=== PATIENT | female | born 1960 | race Caucasian/White ===

== ENCOUNTER → 2016-07-24 | Outpatient (CLI) | payer OTHER ==
[2016-07-24 12:57] LABS: CREATININE, URINE 45.6 MG/DL (15-500)
== END ==
LOC: MOB LAB 11:06
DX: E11.9 Type 2 diabetes mellitus without complications (principal)
CPT/HCPCS: 82043

== ENCOUNTER 2017-04-03 12:18 | Observation (INO) ==
[2017-04-03 09:56] LABS: Hemoglobin [HGB] 16.4 g/dL (12.0-16.0); MEAN CORPUSCULAR HEMOGLOBIN 31.1 PG (27-31); MEAN CORPUSCULAR HGB CONC 33.4 g/dL (33-37); MEAN CORPUSCULAR VOLUME 93 FL (81-99); RED BLOOD COUNT 5.28 10^6/uL (4.20-5.40)
[2017-04-03 09:57] LABS: BASOPHILS % (AUTO) 0.6 % (0-1); EOSINOPHILS % (AUTO) 1.6 % (0-8); LYMPHOCYTES # (AUTO) 1.85 10*3/uL; MEAN PLATELET VOLUME 7.6 FL (7.4-12.2); MONOCYTES # (AUTO) 0.84 10*3/UL (0.3-0.8); MONOCYTES % (AUTO) 7.7 % (5-15); NEUTROPHILS # (AUTO) 7.97 10*3/UL; NEUTROPHILS % (AUTO) 73.1 % (50-80)
[2017-04-03 09:58] LABS: BASOPHILS # (AUTO) 0.07 10*3/UL; EOSINOPHILS # (AUTO) 0.17 10*3/UL; PLATELET MORPHOLOGY COMMENT NORMAL MORPHOLOGY (NORM); RBC MORPHOLOGY COMMENT NORMAL MORPHOLOGY (NORM); WBC MORPHOLOGY COMMENT NORMAL MORPHOLOGY (NORM)
[2017-04-03 10:02] LABS: BLOOD UREA NITROGEN 13 mg/dL (7-22); BUN/CREATININE RATIO 16.25 (6-20); SERUM ALBUMIN 4.7 g/dL (3.5-4.8)
--- NOTE | 2017-04-03 11:41 | DI ---
CT Abdomen/Pelvis W Contrast,04/03/2017 9:24 AM: Clinical History: Unspecified abdominal pain. Previous Exam: None at this facility. Findings: Multiple helically acquired CT images are obtained through the abdomen and pelvis following intraveno us administration of contrast. There is diffuse fatty infiltration of the liver. Patient is status po st cholecystectomy. The spleen, adrenals, kidneys and pancreas are unremarkable. There is no mesenteric or retroperitonea l lymphadenopathy. The appendix is enlarged, fluid-filled and inflamed measuring 12 mm in diameter. T here is peritonitis involving the right peritoneal reflection. The urinary bladder is unremarkable. The uterus and ovaries are grossly normal. A few peripheral vascular calcifications are seen. There is no evidence of free air. Impression: Acute appendicitis.
[2017-04-03] MEDS ORDERED: LIDOCAINE W/ SODIUM BICARB 0.5 ML SYR SUBD ONE (12:40)
[2017-04-03] MEDS ORDERED: Lactated Ringers 1,000 ML PRIMARY IV ONE ×3 (12:42→15:25)
[2017-04-03] MEDS ORDERED: LIDOCAINE W/ SODIUM BICARB 0.5 ML SYR ONE (12:42)
[2017-04-03] MEDS ORDERED: Lactated Ringers 1,000 ML PRIMARY IV SCH ×4 (13:15→17:24)
[2017-04-03] MEDS ORDERED: fentaNYL Inj 250 MCG/5 ML VIAL ONE (13:27)
[2017-04-03] MEDS ORDERED: MIDAZOLAM 5 MG/1 ML ONE (13:27)
[2017-04-03] MEDS ORDERED: ROCURONIUM 10 MG/1 ML - 5 ML VIAL IVP ONE (13:29)
[2017-04-03] MEDS ORDERED: PROPOFOL 10 MG/1 ML (200 MG/20 ML) VIAL IV ONE (13:30)
--- NOTE | 2017-04-03 13:38 | PDOC ---
HPI - History of Present Illness Date of Service: 04/03/17 Time of Service: 13:20 Chief Complaint: Acute appendicitis. History of Present Illness: The patient is a 57-year-old female who reports 2-3 days of not feeling well. She initially did not have any appetite 2 days ago. Yesterday she started having abdominal pain. The pain was progressive until today. She presented to the open access clinic. She was afebrile. White count was 10,900. She was tender in her right lower quadrant. She had a CT scan done which is positive for acute appendicitis. I am called to see her. She was sent down surgery for me to evaluate her and I am seeing her at this time. Patient reports she's had some diaphoresis. She denies fever or chills. She denies diarrhea or constipation. She denies nausea or vomiting. She had a bowel movement yesterday but none today. She passed a small amount of gas this morning. She's never had a pain like this before. Past Medical History Medical History: Type II diabetes. Hyperlipidemia. Hypertension. Hypothyroidism. Obesity. Asthma. Surgical History: Laparoscopic cholecystectomy. Laparoscopic oophorectomy. Finger surgery. 2. Tubal ligation. Tobacco Use: Never Smoker In the Past 12 Months, Have Used or Abuse Any of the Following Substance: None Medication / Allergies Home Medications: Home Medications Medication Instructions Recorded Confirmed Type Cholecalciferol (Vitamin D3) 10,000 unit PO DAILY 12/03/13 04/03/17 History [Vitamin D3] Ibuprofen [Motrin Tab] 400 mg PO TID PRN #30 tab 12/03/13 04/03/17 Rx Multivitamin [One Daily 1 ea PO DAILY 12/03/13 04/03/17 History Multivitamin] Albuterol HFA Inhaler [Proair Hfa 1 - 2 puff INH Q6H #1 puff 03/22/14 04/03/17 History Inhaler] Magnesium 1 tab PO QD #30 tab 07/12/15 04/03/17 History [place]-3S/Dha/Epa/Fish Oil [Fish 1 cap PO QD #30 cap 07/12/15 04/03/17 History Oil 1,200 Mg Softgel] Sodium Chloride/Sodium Bicarb 75 ml NS QD PRN #1 spray 07/12/15 04/03/17 History [[employer]asa Mist Saline [place]] Blood Sugar Diagnostic [Onetouch 1 ea IN QID #360 strip 04/09/16 04/03/17 Rx Ultra Test Strips] Oxybutynin Chloride [Ditropan Xl] 1 tab PO QD #90 tab 04/09/16 04/03/17 Rx amlodipine 10 mg-benazepril 40 mg 1 cap PO QD #90 cap 01/21/17 04/03/17 Rx capsule metformin 500 mg tablet 500 mg PO QD #90 tab 01/21/17 04/03/17 Rx levothyroxine 75 mcg capsule 75 mcg PO QDAY #30 cap 02/04/17 04/03/17 Rx spironolactone 25 mg tablet 25 mg PO QDAY #30 tab 02/04/17 04/03/17 Rx atorvastatin 40 mg tablet 40 mg PO QDAY #30 tab 02/27/17 04/03/17 Rx Allergies/Adverse Reactions: Allergies 3 Allergy/AdvReac Type Severity Reaction Status Date / Time No Known Allergies Allergy Verified 04/03/17 12:28 Review of Systems - Gastrointestinal Gastrointestinal / Abdominal: REPORTS: Abdominal Pain, Poor Appetite, See HPI. DENIES: Negative System Review, Nausea, Vomiting, Diarrhea, Constipation, Bloody Stool, Heartburn, Regurgitation, Bloating, Lactose Intolerance, Melena, Bright Red Blood per Rectum, Other Exam - Vitals Vital Signs: Vital Signs Temperature 98.6 F Pulse Rate 81 Respiratory Rate 14 Blood Pressure 111/78 Pulse Ox 94 Height 5 ft 3 in Weight 182 lb - General General Appearance: No Acute Distress, Cooperative - Respiratory Respiratory Exam: POSITIVE: Clear to Auscultation - Bilaterally, Breathing Non Labored - Cardiovascular Cardiovascular Exam: POSITIVE: RRR, No Murmur - GI/Abdominal GI/Abdominal Exam: POSITIVE: Non Distended, Soft, Guarding (Voluntary, right lower quadrant.), Hypoactive Bowel Sounds Additional GI/Abdominal Exam Details: Physical tenderness in the right lower quadrant at McBurney's point. Voluntary guarding. Midline incision is well healed. There is an umbilical incisional hernia. - Neurological Neurological Exam: POSITIVE: Alert, Oriented x 3 - Psychiatric Psychiatric Exam: POSITIVE: Normal Affect, Normal Mood Results - Labs CBC and BMP: 04/03/17 09:46 04/03/17 09:46 - Imaging Status: Image Reviewed by Me (And discussed with the radiologist.), Report Reviewed by Me Assessment and Plan - Patient Problems (1) Acute appendicitis Current Visit: Yes Status: Acute Priority: High Onset Date: ~04/02/17 Comment: Proceed with appendectomy. I think this is amenable to a laparoscopic appendectomy and repair of her incisional hernia. We will proceed that way. She understands she might need an open appendectomy.The procedure has been discussed with the patient in complete yet simple terms including benefits, risks, and alternatives. All questions have been answered. Informed consent has been obtained. The patient's was present for conversation. Code(s): K35.80 - Unspecified acute appendicitis Qualifiers: Acute appendicitis type: with localized peritonitis Qualified Code(s): K35.3 - Acute appendicitis with localized peritonitis
[2017-04-03] MEDS ORDERED: Sodium Chloride 0.9% vial 10 ML ONE (13:40)
[2017-04-03] MEDS ORDERED: BUPIVACAINE 0.25% W/ EPI - 10 ML VIAL ONE ×2 (13:40→14:41)
[2017-04-03] MEDS ORDERED: NORMAL SALINE 10 ML SYRINGE FLUSH IVP PRN ×2 (13:48→15:49)
[2017-04-03] MEDS ORDERED: ERTAPENEM IV SCH (14:00)
[2017-04-03] MEDS ORDERED: SODIUM CHLORIDE 0.9% IV SCH (14:00)
[2017-04-03] MEDS ORDERED: KETAMINE 100 MG/1 ML - 5 ML ONE (14:21)
[2017-04-03] MEDS ORDERED: ONDANSETRON 4 MG/2 ML VIAL ONE (14:32)
[2017-04-03] MEDS ORDERED: KETOROLAC 30 MG/1 ML VIAL ONE (14:32)
[2017-04-03] MEDS ORDERED: HYDROmorphone 2 MG/1 ML ONE (14:43)
[2017-04-03] MEDS ORDERED: SUGAMMADEX SODIUM 200 MG/2 ML VIAL IV ONE (15:18)
--- NOTE | 2017-04-03 15:48 | CRNA.PROGR ---
Anesthesia Recovery Phase I - Post Anesthesia Evaluation Patient's Condition on Arrival in Phase I: Stable Pain Level: 1
[2017-04-03] MEDS ORDERED: fentaNYL Inj 100 MCG/2 ML VIAL IVP PRN (15:49)
[2017-04-03] MEDS ORDERED: ONDANSETRON 4 MG/2 ML VIAL IVP PRN ×2 (15:49→17:24)
[2017-04-03] MEDS ORDERED: HYDROmorphone 2 MG/1 ML IVP PRN (15:49)
--- NOTE | 2017-04-03 15:49 | CRNA.PROGR ---
Anesthesia Time - - Start date: 04/03/17 End date: 04/03/17 - Procedure/Recovery Time Anesthesia : Time In: 13:56 Anesthesia : Time Out: 15:39 Anesthesia : Total Time: 103 - Total Anesthesia Time Total Anesthesia Time (minutes): 103 - Other Weight: 82.554 kg Height: 5 ft 3 in Body Mass Index (BMI): 32.2 Physical Status: P2 Anesthesia Type: General Anesthesia : ET (Lap Appy with umbilical hernia repair)
--- NOTE | 2017-04-03 16:59 | GEN.OPNOTE ---
Operative Note Surgery Date: 04/03/17 Preoperative Diagnosis: Acute appendicitis. Incisional hernia at the umbilicus. Postoperative Diagnosis: Same. Procedure: #1 laparoscopic appendectomy. #2 incisional herniorrhaphy. Surgeon: Amilcar Murillo MD Anesthesia Provider: Qunicy Tovar CRNA Anesthesia Type: General Estimated Blood Loss (mL): 5 Fluids: 2000 mL of crystalloid. 1 g of IV Invanz at the start of the procedure. 30 mg of IV Toradol at the end of the procedure. Pathology: Specimen to pathology. Indications: Clinical exam and CT scan consistent with acute appendicitis. Patient also had an incisional hernia which needed to be repaired to proceed with a laparoscopic appendectomy. Findings: Acute appendicitis. Incisional hernia at the umbilicus. Thin fascia. Multiple intra-abdominal adhesions. Complications: None. Operative Summary: The patient was taken to the operating suite and placed on the operating table in a supine position. Following induction of general anesthetic the abdomen was prepped and draped in a sterile fashion. A surgical timeout was done. All incision sites were infiltrated with 1/4% Marcaine with epinephrine. A curvilinear incision was made below the umbilicus. The dissection was carried down to the fascia with electrocautery. The umbilicus was detached. The hernia sac was excised. The preperitoneal fat was reduced through the hernia defect at the umbilicus. The defect at the umbilicus was extended in size to get back to adequate tissue for closure.. The wound was partially closed transversely with [id number] sutures of 0 Vicryl. Some intra-abdominal adhesions were taken down. A Say cannula was inserted and secured with the fascial closure sutures. A pneumoperitoneum was induced. A laparoscope was inserted. A 10 mm trocar was placed in the lower midline under direct visualization and a 5 mm trocar was placed in the right lower quadrant under direct visualization. There were some adhesions to the cecum from the lateral abdominal wall. These were taken down with the gyrus device and sharply. The appendix was visualized and grasped. The mesoappendix was taken down with the gyrus until the appendix was freed to its base. An Endoloop was placed over the appendix up to the base of the cecum. It was closed, secured, and cut. A second Endoloop was placed over the appendix and tightened and cut. The gyrus device was used to amputate the appendix. The appendix was placed into an Endopouch and brought out through the umbilical trocar site. Appropriate irrigation and suctioning were performed. Hemostasis was assured. The trochars were removed under direct visualization. The fascial defect at the umbilicus was closed transversely with [id number] sutures of 0 Vicryl. The umbilicus was reattached with 2- 0 Vicryl. The skin was closed with surgical brigette followed by an appropriate dressing. The lower midline fascial defect was closed with a [id number] suture of 0 Vicryl. The 5 mm trocar site did not require fascial closure. The remaining skin wounds closed with surgical brigette followed by appropriate dressings. The patient tolerated the entire procedure well without complication. She was taken to the recovery room in stable condition. All counts were correct. Patient Problems - Patient Problem List (1) Acute appendicitis Current Visit: Yes Status: Acute Onset Date: ~04/02/17 Priority: High Code(s): K35.80 - Unspecified acute appendicitis Qualifiers: Acute appendicitis type: with localized peritonitis Qualified Code(s): K35.3 - Acute appendicitis with localized peritonitis Category: Medical
[2017-04-03] MEDS ORDERED: MORPHINE SULFATE 2 MG/1 ML IVP PRN (17:24)
[2017-04-03] MEDS ORDERED: HYDROcodone-APAP 5 MG -325 MG TABLET PO PRN (17:24)
[2017-04-03] MEDS ORDERED: ALBUTEROL SULFATE 8.5 GM HFA INHALER INH PRN (19:00)
[2017-04-03] MEDS: NORMAL SALINE 10 ML SYRINGE FLUSH IVP PRN (20:45)
[2017-04-03] MEDS: KETOROLAC 15 MG/1 ML VIAL IVP SCH (20:45)
[2017-04-03] MEDS ORDERED: ATORVASTATIN 40 MG TABLET PO SCH (21:00)
[2017-04-04] MEDS: KETOROLAC 15 MG/1 ML VIAL IVP SCH ×2 (03:02→09:35)
[2017-04-04] MEDS ORDERED: LEVOTHYROXINE 75 MCG TABLET PO SCH (05:30)
[2017-04-04 07:08] LABS: BLOOD UREA NITROGEN 11 mg/dL (7-22); BUN/CREATININE RATIO 15.71 (6-20)
[2017-04-04 07:09] LABS: Hematocrit [HCT] 38.8 % (37.0-47.0); Hemoglobin [HGB] 12.9 g/dL (12.0-16.0); MEAN CORPUSCULAR HEMOGLOBIN 30.8 PG (27-31); MEAN CORPUSCULAR HGB CONC 33.3 g/dL (33-37); MEAN CORPUSCULAR VOLUME 93 FL (81-99); MEAN PLATELET VOLUME 7.7 FL (7.4-12.2); MONOCYTES % (AUTO) 8.5 % (5-15); NEUTROPHILS % (AUTO) 70.1 % (50-80); RED BLOOD COUNT 4.19 10^6/uL (4.20-5.40)
[2017-04-04 07:10] LABS: BASOPHILS # (AUTO) 0.06 10*3/UL; BASOPHILS % (AUTO) 0.6 % (0-1); EOSINOPHILS # (AUTO) 0.16 10*3/UL; EOSINOPHILS % (AUTO) 1.5 % (0-8); LYMPHOCYTES # (AUTO) 2.08 10*3/uL; MONOCYTES # (AUTO) 0.92 10*3/UL (0.3-0.8); NEUTROPHILS # (AUTO) 7.56 10*3/UL; PLATELET MORPHOLOGY COMMENT NORMAL MORPHOLOGY (NORM); RBC MORPHOLOGY COMMENT NORMAL MORPHOLOGY (NORM); WBC MORPHOLOGY COMMENT NORMAL MORPHOLOGY (NORM)
[2017-04-04 07:45] VITALS: RESP 14
[2017-04-04] MEDS ORDERED: metFORMIN 500 MG TABLET PO SCH (09:00)
[2017-04-04] MEDS ORDERED: Spironolactone Tab 25 MG TAB PO SCH (09:00)
[2017-04-04] MEDS ORDERED: BENAZEPRIL 10 MG TABLET PO SCH (09:00)
[2017-04-04] MEDS: NORMAL SALINE 10 ML SYRINGE FLUSH IVP PRN (09:35)
[2017-04-04 12:17] VITALS: BP 113/69; TEMP 98.7
[2017-04-04 14:12] VITALS: O2SAT 91
--- NOTE | 2017-04-04 14:32 | DCSUMMARY ---
Discharge Summary Admit Date: 04/03/17 Discharge Date: 04/04/17 Admitting Diagnosis: acute appendicitis. Incisional hernia. Discharge Diagnosis: Same. Primary Surgery and Date: Laparoscopic appendectomy with incisional herniorrhaphy on 04/03/2015. Hospital Course: The patient was admitted with physical exam and CT consistent with acute appendicitis. The appendix was anterior. She was a good candidate for laparoscopic appendectomy. She did have an incisional hernia. We had to use an open cutdown technique and diaphragm the fascia back to adequate tissue. Laparoscopic appendectomy was accomplished without undue difficulty. The incisional hernia at her umbilicus was repaired. Postoperatively the patient has done well. Her oxygen saturations dropped a little but room air saturations are greater than 88% now. She has been doing better with her pulmonary toilet. Patient is tolerating regular diet. She is passing gas. She has not had a bowel movement. She is not nauseated or vomiting. She denies fever or chills. She is voiding. The urine is clearing. She feels comfortable going home for outpatient follow-up. Exam - Vitals Vital Signs: Vital Signs Temperature 98.7 F Temperature Source Oral Pulse Rate [Pulse Oximeter] 75 Pulse Rate 73 Respiratory Rate 14 Blood Pressure [Left Arm] 113/69 Blood Pressure 108/58 Pulse Ox 91 Oxygen Flow Rate 2 Oxygen Delivery Method Room Air Height 5 ft 3 in Weight 186 lb 12.8 oz - General General Appearance: No Acute Distress, Cooperative - Respiratory Respiratory Exam: POSITIVE: Clear to Auscultation - Bilaterally, Breathing Non Labored - Cardiovascular Cardiovascular Exam: POSITIVE: RRR, No Murmur - GI/Abdominal GI/Abdominal Exam: POSITIVE: Normal Bowel Sounds, Non Tender, Soft Additional GI/Abdominal Exam Details: The dressings are clean and dry and intact. There is some incisional tenderness. The rest of the abdominal exam is benign. - Neurological Neurological Exam: POSITIVE: Alert, Oriented x 3 - Psychiatric Psychiatric Exam: POSITIVE: Normal Affect, Normal Mood Data Peritnent Studies: CT scan showing acute appendicitis. Procedures: Laparoscopic appendectomy. Incisional herniorrhaphy. Patient Problems - Patient Problem List (1) Acute appendicitis Current Visit: Yes Status: Acute Onset Date: ~04/02/17 Priority: High Comment: Doing very well postoperatively. Ready for discharge for outpatient follow-up. Code(s): K35.80 - Unspecified acute appendicitis Qualifiers: Acute appendicitis type: with localized peritonitis Qualified Code(s): K35.3 - Acute appendicitis with localized peritonitis Category: Medical (2) Incisional hernia Current Visit: Yes Status: Acute Priority: Medium Comment: Status post incisional herniorrhaphy. Doing well. Code(s): K43.2 - Incisional hernia without obstruction or gangrene Category: Medical
== END 2017-04-04 15:41 | disposition home or self-care (01) ==
LOC: MED/SURG 12:18 → OR 12:18
PROVIDERS: ADMIT Surgery; ATTEND Surgery